=== PATIENT | male | born 1970 | race African-American/Black ===

== ENCOUNTER 2019-04-19 22:21 | Emergency (ER) | payer MEDICAID ==
[~2019-04-19] VITALS: Ht 170.2 cm; Wt 77.1 kg
[2019-04-19] MEDS ORDERED: Ipratropium 0.02% Inh Soln 2.5ml UD HHN ONE (23:30)
[2019-04-19] MEDS ORDERED: Albuterol ud Inhalation HHN ONE (23:30)
--- NOTE | 2019-04-20 | Emergency Room Report ---
History of Present Illness General Chief Complaint: Asthma Source: Patient Present Illness HPI This is a 48-year-old male with a history of asthma/COPD. He also a smoker. Presents with chief complaint shortness of breath and wheezing. Onset on off the last 2 weeks were getting worse. He did not use his inhaler. No fever chills. Coughing is productive of sputum. Allergies: Coded Allergies: No Known Allergies (Unverified , 04/19/19) Patient History Past Medical History: see triage record, old chart reviewed Past Surgical History: none Pertinent Family History: none Social History: Reports: smoking Immunizations: other Reviewed Nursing Documentation: PMH: Agreed; PSxH: Agreed Nursing Documentation-PMH Past Medical History: No History, Except For Hx Asthma: Yes Physical Exam Vital Signs Date Time Temp Pulse Resp B/P (MAP) Pulse Ox O2 Delivery O2 Flow Rate FiO2 04/19/19 22:41 97.9 97 15 127/69 (88) 99 Room Air Medical Decision Making Diagnostic Impression: Primary Impression: Asthma attack Qualified Codes: J45.21 - Mild intermittent asthma with (acute) exacerbation Additional Impression: COPD exacerbation ER Course This patient presents with asthma/COPD exacerbation. Better after breathing treatment. Because of his smoking history and the chronicity of this, will put him on antibiotics. No evidence of ACS, PE, dissection to name a few. Will discharge home. Last Vital Signs Date Time Temp Pulse Resp B/P (MAP) Pulse Ox O2 Delivery O2 Flow Rate FiO2 04/19/19 23:42 92 20 100 Room Air 88 18 100 04/19/19 22:41 97.9 127/69 (88) Status: improved Disposition: HOME, SELF-CARE Condition: Stable Scripts Levofloxacin (LEVOFLOXACIN*) 500 Mg Tablet 500 MG ORAL DAILY, #7 TAB Prov: Tay Thurman MD 04/20/19 Prednisone* (PREDNISONE*) 20 Mg Tablet 40 MG ORAL DAILY, #10 TAB Prov: Tay Thurman MD 04/20/19 Albuterol Sulfate* (ALBUTEROL SULFATE MDI*) 8.5 Gm Hfa.aer.ad 2 PUFF INH Q4H PRN for cough/wheezing, #1 EA 0 Refills Prov: Tay Thurman MD 04/20/19 Referrals: [facility],REFERRING (PCP) Patient Instructions: Asthma, Adult Additional Instructions: Stop smoking. Follow-up with your doctor in 7 days. Return if worse. Tay Thurman MD Apr 20, 2019 00:00
[2019-04-20] MEDS ORDERED: ALBUTEROL SULF8.5 GM INH (01:22)
[2019-04-20] MEDS ORDERED: LEVOFLOXACIN500 MG ORAL (01:22)
[2019-04-20] MEDS ORDERED: PREDNISONE20 MG ORAL (01:22)
[2019-04-20 02:00] VITALS: BP 127/69
== END 2019-04-20 02:00 | disposition home or self-care (01) ==
LOC: EMR 23:35
DX: J45.21 Mild intermittent asthma with (acute) exacerbation (principal); J44.1 Chronic obstructive pulmonary disease with (acute) exacerbation; F17.200 Nicotine dependence, unspecified, uncomplicated
CPT/HCPCS: J7512; Z7502; 99284